=== PATIENT | female | born 1960 | race Caucasian/White ===

== ENCOUNTER → 2016-10-13 17:23 | Outpatient (CLI) | payer MEDICARE ==
[2011-05-25 18:50] VITALS: BMI 32.5
== END | disposition home or self-care (01) ==
LOC: D.MAMMO 09-21 09:00 → D.US 09-21 10:00 → D.MAMMO 10:00
DX: C50.812 Malignant neoplasm of overlapping sites of left female breast (principal)

== ENCOUNTER → 2017-12-15 20:32 | Outpatient (CLI) | payer MEDICARE ==
[2011-05-25 18:50] VITALS: BMI 32.5
== END | disposition home or self-care (01) ==
LOC: D.MAMMO 12-01 09:30
DX: Z85.3 Personal history of malignant neoplasm of breast (principal)

== ENCOUNTER 2019-01-09 08:00 | Outpatient (CLI) | payer MEDICARE ==
[2011-05-25 18:50] VITALS: BMI 32.5
== END 2019-01-09 23:59 | disposition home or self-care (01) ==
LOC: D.MAMMO 08:00
PROVIDERS: ATTEND Internal Medicine Medical Oncology
DX: Z12.31 Encounter for screening mammogram for malignant neoplasm of breast (principal)

== ENCOUNTER 2020-01-15 09:45 | Outpatient (CLI) | payer MEDICARE ==
[2011-05-25 18:50] VITALS: BMI 32.5
== END 2020-01-15 14:50 | disposition home or self-care (01) ==
LOC: D.MAMMO 09:45
PROVIDERS: ATTEND Internal Medicine Medical Oncology
DX: Z12.31 Encounter for screening mammogram for malignant neoplasm of breast (principal)